=== PATIENT | male | born 1960 | race Caucasian/White ===

== ENCOUNTER 2022-11-14 08:05 | Emergency (ER) | payer OTHER ==
[~2022-11-14] VITALS: Ht 177.8 cm; Wt 109.1 kg
[2022-11-14 08:22] VITALS: BP 171/91
[2022-11-14] MEDS ORDERED: KETOROLAC TROMETHAMINE 60 MG/2 ML VIAL IM ONE (08:30)
[2022-11-14] MEDS ORDERED: IBUP-1492 PO (09:46)
== END 2022-11-14 10:05 | disposition home or self-care (01) ==
LOC: EMS 08:05
DX: S13.4XXA Sprain of ligaments of cervical spine, initial encounter (principal); I10 Essential (primary) hypertension; V89.2XXA Person injured in unspecified motor-vehicle accident, traffic, initial encounter; Y93.89 Activity, other specified; Y92.89 Other specified places as the place of occurrence of the external cause; Y99.8 Other external cause status
CPT/HCPCS: 99283; 96372; J1885